=== PATIENT | female | born 1940 | race Caucasian/White ===

== ENCOUNTER 2021-05-01 08:19 | Emergency (ER) | payer MEDICARE, BC ==
[~2021-05-01] VITALS: Ht 177.8 cm; Wt 58.0 kg
[2021-05-01] MEDS ORDERED: METOPROLOL 1 MG/ML, 5ML ONE ×2 (09:46→10:17)
[2021-05-01] MEDS ORDERED: ASPIRIN 81 MG TABLET CHEW ONE (09:46)
[2021-05-01] MEDS: METOPROLOL 1 MG/ML, 5ML IVPush PRN ×2 (09:57→10:19)
[2021-05-01] MEDS ORDERED: SODIUM CHLORIDE FLUSH 10ML SYR IVF ONE (10:00)
[2021-05-01] MEDS ORDERED: SODIUM CHLORIDE 0.9% 1,000ML IVBOLUS ONE (10:00)
[2021-05-01] MEDS ORDERED: ASPIRIN 81 MG TABLET CHEW PO ONE (10:00)
[2021-05-01 10:01] LABS: BASOPHILS % (AUTO) 1 % (0-1); EOSINOPHILS % (AUTO) 2 % (1-7); LYMPHOCYTES % (AUTO) 23 % (22-44); MEAN CORPUSCULAR HEMOGLOBIN 33.4 pg (27.0-34.8); MEAN CORPUSCULAR HGB CONC 34.3 g/dL (32.4-35.8); MEAN PLATELET VOLUME 7.4 fL (7.4-10.4); MONOCYTES % (AUTO) 5 % (2-9); NEUTROPHILS % (AUTO) 68 % (42-75); PLATELET COUNT 202 x10^3/uL (130-400); RED BLOOD COUNT 4.78 x10^6/uL (3.82-5.3); RED CELL DISTRIBUTION WIDTH 13.8 % (9.6-15.2)
[2021-05-01 10:11] LABS: ALBUMIN 3.7 g/dL (3.4-5.0); ANION GAP 8 mmol/L (5-15); CALCIUM 9.2 mg/dL (8.5-10.1); CHLORIDE 103 mmol/L (98-107); CREATININE 0.74 mg/dL (0.55-1.02)
[2021-05-01 10:15] LABS: TROPONIN I < 0.015 ng/mL (0.000-0.045)
--- NOTE | 2021-05-01 10:21 | NUR ---
pt ambulated to bathroom without complications.
[2021-05-01] MEDS ORDERED: PROPOFOL 10 MG/ML, 20ML ONE (10:55)
--- NOTE | 2021-05-01 11:16 | NUR ---
cardioverson following 30mg of propofol IV. Pt required 2 shocks with 200J to return pt back to [facility].
[2021-05-01] MEDS ORDERED: APIXABAN 2.5 MG TABLET PO ONE (11:42)
[2021-05-01] MEDS ORDERED: APIXABAN 5 MG TABLET ONE (12:08)
[2021-05-01 12:38] VITALS: BP 137/87
== END 2021-05-01 12:39 | disposition home or self-care (01) ==
LOC: ED 09:17
DX: I48.91 Unspecified atrial fibrillation (principal)
CPT/HCPCS: 36415; 71045; 80048; 82040; 84484; 85025; 92960; 93005; 96374; 99285; J7030

== ENCOUNTER 2021-05-24 09:56 | Emergency (ER) | payer MEDICARE, BC ==
[~2021-05-24] VITALS: Ht 177.8 cm; Wt 62.2 kg
[2021-05-24 11:22] VITALS: BP 101/74
== END 2021-05-24 11:25 | disposition home or self-care (01) ==
LOC: ED 10:02
DX: S83.91XA Sprain of unspecified site of right knee, initial encounter (principal); M25.461 Effusion, right knee; I48.91 Unspecified atrial fibrillation; Z86.39 Personal history of other endocrine, nutritional and metabolic disease; X58.XXXA Exposure to other specified factors, initial encounter; Y93.89 Activity, other specified; Y92.89 Other specified places as the place of occurrence of the external cause; Y99.8 Other external cause status